=== PATIENT | female | born 1980 | race Caucasian/White ===

== ENCOUNTER 2019-09-16 06:38 | Emergency (ER) | payer OTHER, MEDICAID ==
[~2019-09-16] VITALS: Ht 154.9 cm; Wt 54.9 kg
[~2019-09-16 06:38] MED LIST: PHENERGAN 25 MG25 M1 PO; ZOFRAN ODT4 MG PO
[2019-09-16] MEDS ORDERED: NEURONTIN600 MG PO (06:59)
[2019-09-16] MEDS ORDERED: ZYPREXA 10 MG T10 MG PO (06:59)
[2019-09-16] MEDS ORDERED: ZANTAC 7575 MG PO (07:00)
[2019-09-16] MEDS ORDERED: ATIVAN0.5 M1 PO (07:01)
[2019-09-16 07:44] LABS: ABSOLUTE BASOPHILS 0.1 thou/uL (0.0-0.2); ABSOLUTE EOSINOPHILS 0.1 thou/uL (0.0-0.7); ABSOLUTE LYMPHOCYTES 2.5 thou/uL (0.8-5.3); ABSOLUTE MONOCYTES 0.8 thou/uL (0.0-1.2); ABSOLUTE NEUTROPHILS 7.4 thou/uL (1.6-8.1); BASOPHILS 0.8 %; EOSINOPHILS 1.4 %; HEMATOCRIT 39.8 % (37.0-47.0); HEMOGLOBIN 13.7 gm/dL (12.0-15.0); LYMPHOCYTES 22.8 %; MCH 32.1 pg (26.0-34.0); MCHC 34.4 g/dL (28.0-37.0); MCV 93.4 fL (80.0-100.0); MPV 9.8 fl. (7.2-11.1); NUCLEATED RBCS 0 /100WBC; PLATELET COUNT* 246 thou/uL (150-400); RBC 4.26 mil/uL (4.20-5.00); RDW-CV 14.2 % (10.5-14.5); WBC 10.8 thou/uL (4.0-11.0)
[2019-09-16 07:51] LABS: URINE BILIRUBIN NEGATIVE (Negative); URINE BLOOD NEGATIVE (Negative); URINE CLARITY CLEAR; URINE COLOR YELLOW; URINE GLUCOSE-RANDOM NEGATIVE (Negative); URINE KETONES NEGATIVE (Negative); URINE LEUKOCYTES-REFLEX NEGATIVE (Negative); URINE NITRITE-REFLEX NEGATIVE (Negative); URINE PROTEIN NEGATIVE (Negative); URINE SPECIFIC GRAVITY >= 1.030 (1.005-1.030); URINE UROBILINOGEN 0.2 E.U./dl (0.2-1.0)
[2019-09-16 07:52] LABS: CALCIUM 8.9 mg/dL (8.5-10.1); CREATININE 0.7 mg/dL (0.6-1.3); POTASSIUM 3.7 mmol/L (3.5-5.1)
[2019-09-16 07:57] LABS: ALBUMIN 4.1 g/dL (3.4-5.0); TOTAL BILIRUBIN 0.8 mg/dL (<0.1-1.0); TOTAL PROTEIN 7.9 g/dL (6.4-8.2)
[2019-09-16 07:58] LABS: AMP/METHAMP POSITIVE (Negative); BARBITURATES Negative (Negative); BENZODIAZEPINES POSITIVE (Negative); COCAINE Negative (Negative); METHADONE Negative (Negative); OPIATES Negative (Negative); PCP Negative (Negative); THC Negative (Negative)
--- NOTE | 2019-09-16 09:16 | EKG ---
[place] [address] ELECTROCARDIOGRAM REPORT Name: MARC GOODSON Room: [facility]#: [id number] Admission: 09/16/19 Attend Phys: Discharge: Date of : 82 Date of Service: 09/16/19723 Report #: [id number] THIS REPORT FOR: //name// [facility] ED Test Date: 2019-09-16 Test Time: 07:24:42 Pat Name: MARC GOODSON Department: Room: Gender: Unix Administrator: : [id number] Requested By: Nelson Mtz Order Number: [id number] MD: Sanjay Carreon Measurements Intervals [place] Rate: 95 P: 84 MD: 110 QRS: 73 QRSD: 92 T: 29 QT: 364 QTc: 458 Interpretive Statements Sinus rhythm Borderline short MD interval Minimal ST depression, inferior leads No previous ECG available for comparison Electronically Signed On 09-16-2019 9:14:46 CDT by Sanjay Carreon [email or web address] <ELECTRONICALLY SIGNED> By: Sanjay Carreon MD, [facility] 09/16/19913 3 3 Sanjay Carreon MD, FACC /EPI
[2019-09-16] MEDS ORDERED: BENTYL 20 MG TA20 M1 PO (09:32)
[2019-09-16] MEDS ORDERED: ZOFRAN ODT4 MG DISSOLVE (09:32)
[2019-09-16 09:48] VITALS: BP 119/69
== END 2019-09-16 09:49 | disposition home or self-care (01) ==
LOC: M.ERS 06:38
PROVIDERS: Emergency Medicine Emergency Medical Services
DX: R10.84 Generalized abdominal pain (principal); R42 Dizziness and giddiness; K21.9 Gastro-esophageal reflux disease without esophagitis; F31.9 Bipolar disorder, unspecified; F17.210 Nicotine dependence, cigarettes, uncomplicated; Z98.890 Other specified postprocedural states; Z98.51 Tubal ligation status; Z85.528 Personal history of other malignant neoplasm of kidney; Z91.040 Latex allergy status; Z88.2 Allergy status to sulfonamides; Z88.6 Allergy status to analgesic agent